=== PATIENT | male | born 1990 | race African-American/Black ===

== ENCOUNTER 2018-07-02 14:34 | Emergency (ER) | payer OTHER, MEDICAID ==
[2018-07-02] MEDS: AZITHROMYCIN 250 MG TAB PO (16:47)
[2018-07-02] MEDS: CEFTRIAXONE 250 MG INJ IM (16:48)
== END 2018-07-02 17:21 | disposition home or self-care (01) ==
LOC: FTE 14:34
DX: N48.89 Other specified disorders of penis (principal)
CPT/HCPCS: 87255; 96372; 99284-25